=== PATIENT | female | born 1955 | race Caucasian/White ===

== ENCOUNTER 2018-10-08 15:38 | Outpatient (REF) | payer BC, SELFPAY ==
[2018-10-08 22:24] LABS: TSH 1.36 uIU/mL (0.358-3.74)
== END 2018-10-08 15:58 ==
LOC: NCHCN 15:38
PROVIDERS: PCP Internal Medicine; Visit Provider Internal Medicine
DX: E03.9 Hypothyroidism, unspecified (principal)
CPT/HCPCS: 84443

== ENCOUNTER 2019-04-13 10:04 | Outpatient (REF) | payer BC, SELFPAY ==
[2019-04-13 21:39] LABS: Anion Gap 10.1 mmol/L (3-11); BUN 16 mg/dL (7-18); CO2 28.9 mmol/L (21.0-32.0); CREATININE 0.75 mg/dL (0.55-1.02); Calcium 9.1 mg/dL (8.5-10.1); Calculated LDL 127 mg/dL; Chloride 107 mmol/L (98-107); Cholesterol 201 mg/dL (50-200); Glucose 88 mg/dL (70-100); HDL Cholesterol 56 mg/dL (40-60); Potassium 4.1 mmol/L (3.5-5.1); Sodium 146 mmol/L (136-145); Triglyceride 92 mg/dL (30-150)
== END 2019-04-13 10:24 ==
LOC: NCHCN 10:04
PROVIDERS: PCP Internal Medicine; Visit Provider Internal Medicine
DX: H18.51 Endothelial corneal dystrophy (principal); E66.9 Obesity, unspecified; Z13.1 Encounter for screening for diabetes mellitus
CPT/HCPCS: 80048; 80061; 83721

== ENCOUNTER 2019-09-08 01:13 | Outpatient (CLI) | payer MEDICARE, BC, SELFPAY ==
--- NOTE | 2019-09-08 10:25 | DI.MRI_ITS ---
EXAM: MR BRAIN WO CLINICAL HISTORY: MS stable; [place] [facility] [place] MULTIPLE SCLER[place]. TECHNIQUE: Multiplanar multisequence MRI was performed. COMPARISON: BRAIN W/WITHOUT CONTRAST from 11/13/2016 BRAIN W/WITHOUT CONTRAST from 11/13/2016 BRAIN W/WITHOUT CONTRAST from 11/13/2016 FINDINGS: There are again noted to be multiple small high signal foci in the periventricular white matter. The size and number of the lesions appears unchanged. No new abnormalities are seen. There is no evide nce of hemorrhage or mass. The vascular flow voids appear intact. The no areas of restricted diffus ion. There is now near complete opacification of the right maxillary sinus. The orbits and pituita ry are unremarkable. IMPRESSION: Stable white matter foci, consistent with the patient's history of multiple sclerosis. Right maxilla ry sinus disease is now present.
== END 2019-09-08 01:33 ==
PROVIDERS: PCP Internal Medicine; Visit Provider Psychiatry & Neurology Neurology
DX: G35 Multiple sclerosis (principal); J32.0 Chronic maxillary sinusitis
CPT/HCPCS: 70551

== ENCOUNTER → 2019-10-07 09:43 | Outpatient (BNVA) | payer MEDICARE, BC, SELFPAY | PROVIDERS: PCP Internal Medicine; Referring Provider Internal Medicine; Visit Provider Psychiatry & Neurology Neurology | DX: R41.3 Other amnesia (principal); G35 Multiple sclerosis | CPT/HCPCS: 99213 ==

== ENCOUNTER 2019-10-16 12:13 | Outpatient (REF) | payer MEDICARE, BC, SELFPAY ==
--- NOTE | 2019-10-16 11:15 | PAPFT_PTH ---
PATIENT: Vanessa Ortiz LOC: [facility] U#:[id number] AGE/SX: 64/F ROOM: RE10/16/[address]: NEAL Ahmadi : 1955 BED: DIS: 10/16/2019 SPEC #: [id number] RECD: 10/16/19 12:57 STATUS: CESILIA REPriti #: [id number] RACHEL: 10/16/19 11:[address]: Norma Roe DEPT: [facility] Cytology RECD BY: Kellie Dobbins ENTERED: 10/16/19 12:57 SP TYPE: PAPFT OTHR DR: Radha Ann Tissues: 1 - CX/ENDOCX FOR PAP SMEARS Procedures: PAP THIN PREP/UVM Screening HPV DNA PROBE Comments: [id number]
== END 2019-10-16 12:33 ==
LOC: LBN 12:13
PROVIDERS: PCP Internal Medicine; Visit Provider Nurse Practitioner Family
DX: Z12.4 Encounter for screening for malignant neoplasm of cervix (principal); Z11.51 Encounter for screening for human papillomavirus (HPV)
CPT/HCPCS: 88142; 87624

== ENCOUNTER 2019-10-26 13:59 | Outpatient (REF) | payer MEDICARE, BC, SELFPAY ==
[2019-10-26 21:59] LABS: TSH (W/Ref FT4) 2.23 uIU/mL (0.36-3.74)
== END 2019-10-26 14:19 ==
LOC: NCHCN 13:59
PROVIDERS: PCP Internal Medicine; Visit Provider Internal Medicine
DX: E03.9 Hypothyroidism, unspecified (principal)
CPT/HCPCS: 84443

== ENCOUNTER 2019-11-16 02:02 | Outpatient (CLI) | payer MEDICARE, BC, SELFPAY ==
--- NOTE | 2019-11-16 | DI.DEXA_ITS ---
EXAM: XR DEXA BONE DENSITY W/WO PEGGY INDICATION: SCREENING FOR OSTEOPOROSIS IN POSTMENOPAUSAL WOMAN,Z78.0. COMPARISON: No exams were available for comparison TECHNIQUE: 2D digital imaging was performed. FINDINGS: The lateral view of the spine shows no compression deformities. The left hip shows a total T-score of 0.1 and a Z-score of 1.3. This is within normal limits. Evaluation of the lumbar spine shows a total T-score of 0 and a Z-score of 1.8. This is also within normal limits. There is no evidence of osteoporosis. IMPRESSION: No evidence of osteoporosis.
== END 2019-11-16 02:22 ==
PROVIDERS: PCP Internal Medicine; Visit Provider Internal Medicine
DX: Z13.820 Encounter for screening for osteoporosis (principal); Z78.0 Asymptomatic menopausal state
CPT/HCPCS: 77080

== ENCOUNTER 2019-11-16 02:04 | Outpatient (CLI) | payer MEDICARE, BC, SELFPAY ==
--- NOTE | 2019-11-16 12:22 | DI.MAMMO_ITS ---
EXAM: MG MAMMO SCREENING CLINICAL HISTORY: screening. TECHNIQUE: Bilateral full field digital CC and MLO mammographic images were obtained with 3D tomosyn thesis and utilizing computer aided detection (CAD). COMPARISON: Available for comparison. FINDINGS: Masses/Architectural Distortion: None seen. Microcalcifications: No suspicious pleomorphic-type are seen. Skin Thickening/Nipple Retraction: None. IMPRESSION: 1. No significant interval change with no specific features of malignancy noted. 2. Unless there is more urgent need, screening mammography is recommended, as per [employer] guidelines. ACR BI-RAD Category- 1 Negative Breast Density - Category B - Scattered areas of fibroglandular density A negative radiographic report should not delay biopsy if a dominant or clinically suspicious mass is present. Up to ten percent of cancers are not identified on mammography. A negative report may reinforce clinical impression. Adenosis and dense breasts may obscure an underlying neoplasm. False positive reports average 6 to 10%. Patient will receive a letter notifying them of these results.
== END 2019-11-16 02:24 ==
PROVIDERS: PCP Internal Medicine; Visit Provider Nurse Practitioner Family
DX: Z12.31 Encounter for screening mammogram for malignant neoplasm of breast (principal); Z13.820 Encounter for screening for osteoporosis; Z78.0 Asymptomatic menopausal state
CPT/HCPCS: 77063; 77067; 77080

== ENCOUNTER → 2020-03-25 11:21 | Outpatient (BNVA) | payer MEDICARE, BC, SELFPAY | PROVIDERS: PCP Internal Medicine; Referring Provider Internal Medicine; Visit Provider Surgery | DX: Z12.11 Encounter for screening for malignant neoplasm of colon (principal); Z12.12 Encounter for screening for malignant neoplasm of rectum; Z86.010 Personal history of colon polyps ==

== ENCOUNTER 2020-04-13 06:15 | Day surgery (SDC) | payer MEDICARE, BC, SELFPAY ==
[2020-04-13 06:31] VITALS: BP 113/41; PULSE 58; RESP 16; TEMP 36.2; O2SAT 98
[2020-04-13] MEDS: Lactated Ringers 1,000 ML 80 ML IV (06:50)
--- NOTE | 2020-04-13 06:51 | W.COLOREPORT ---
Date of service: 04/13/20 Time of Service: 08:14 Colonoscopy Report Date of procedure: 04/13/20 Pre-op diagnosis general: Colon Cancer Screening Post-op diagnosis procedure note: same Procedure: Colonoscopy Surgeon: Maisha Santamaria Anesthesia proc note operative: other (General / ASA 2/Spencer Banuelos, ÓSCAR ) Pathology: none sent Complications: None Disposition: same day Indications: Mrs. Ortiz is a pleasant 64-year-old female with a past medical history of colon polyps in 2006 and 2009. She had another colonoscopy in 2014 which was normal. She is here today for another screening colonoscopy. She has no family history of colon cancer. Past medical history is only significant for hypothyroidism. She denies any melena, hematochezia, unintentional weight loss, abdominal pain or changes in bowel habits. Prep: Miralax/Dulcolax Procedure Start Time: 07:31 Procedure End Time: 08:00 Retraction Time: 11 minutes Findings: Tortuous colon. No polyps or diverticula Procedure Description: After informed consent was obtained the patient was taken to the procedure room and placed in a left decubitous position. Monitors were applied and a time out was done. The patients name, date of , procedure, allergies to medications and metal in their body was reviewed. The patient was then sedated. Once sedated and comfortable a rectal exam was done. External exam was normal. Internal exam revealed a normal sphincter tone and no palpable masses. The scope was then introduced and retro-flexed. No internal hemorrhoids, masses or polyps were identified on retro-flexion. The scope was then advanced to the cecum with difficulty. Her colon was very tortuous with tight corners. The ileocecal valve and appendiceal orifice were identified. The prep was adequate. The scope was then slowly retracted over 11 minutes back into the rectum. There were no polyps and no diverticula noted. The scope was removed and the patient was woken up and taken back to Same day surgery in stable condition. The patient tolerated the procedure well and there were no immediate complications. Follow up: The patient should follow up in 5 years unless they develop changes in bowel habits or other new gastrointestinal complaints.
--- NOTE | 2020-04-13 06:52 | W.PM.DSUDISC ---
Discharge Plan Disposition Patient Disposition: HOME Condition: Good Discharge Details Reason For Visit: Colon Cancer Screening Attending Provider: Maisha Santamaria Primary Care Provider: Radha Ann Home Meds and New Rx's Prescriptions: Continued cholecalciferol (vitamin D3) 1,000 unit capsule 1,000 unit PO DAILY RF: 0 levothyroxine [Synthroid] 50 mcg tablet 50 mcg PO DAILY RF: 0 Discontinued bisacodyl [Dulcolax (bisacodyl)] 5 mg tablet,delayed release (DR/EC) 5 mg PO ONCE Qty: 4 RF: 0 polyethylene glycol 3350 17 gram powder in packet 255 g PO DAILY Qty: 15 RF: 0 Discharge Instructions Additional Instructions: Findings: Normal Follow up: 5 years for your next colonoscopy Please call if you develop: fevers >101.5 Nausea or Vomiting Abdominal pain that is not transient DAY SURGERY UNIT POST ENDOSCOPY INSTRUCTIONS 1. Because there will be medication in your system for the next 24 hours, you may feel a little sleepy. Your coordination will be affected. Therefore: a. Do not drive or operate dangerous equipment for 24 hours. b. Do not drink alcohol beverages for 24 hours (not even beer). c. Plan to go home and rest for the day. 2. Generally there are no restrictions on your activity after a day or so has gone by, but you may feel a bit fatigued for a few days. 3 After you arrive home you may have a light meal and return to a normal diet as you can tolerate it without feeling sick to your stomach. 4. After surgery, you may feel pain or discomfort. This should be only transient, but if it persists please contact your doctor. 5. If there are any questions regarding the findings of your procedure, please feel free to contact your doctor. 6. If you are unable to contact your doctor with a problem, contact the hospital at [phone]. 7. Continue all your regular medications unless directed otherwise. I understand the above instructions and have no questions. Signature of Patient or Responsible Adult Escort Date/Time Name of Responsible Adult Escort Signature of Nurse Date/Time Activity:: Activity as Tolerated Diet:: As Tolerated Discharge Orders Discharge Orders: Discharge Order (Routine); Ordered 04/13/20 Ordered By: Maisha Santamaria
[2020-04-13 08:29] VITALS: BP 104/55; PULSE 55; RESP 20; TEMP 36.1; O2SAT 98
== END 2020-04-13 09:00 | disposition home or self-care (01) ==
PROVIDERS: PCP Internal Medicine; Visit Provider Surgery
PROC: 0DJD8ZZ Inspection of Lower Intestinal Tract, Via Natural or Artificial Opening Endoscopic (ICD-10-PCS; CPT 45378; principal; 2020-04-13 07:30)
DX: Z12.11 Encounter for screening for malignant neoplasm of colon (principal); Z86.010 Personal history of colon polyps; E03.9 Hypothyroidism, unspecified
CPT/HCPCS: G0105; J2001

== ENCOUNTER 2020-09-21 01:14 | Outpatient (CLI) | payer MEDICARE, BC, SELFPAY ==
--- NOTE | 2020-09-21 07:30 | DI.MRI_ITS ---
EXAM: MR BRAIN WO CLINICAL HISTORY: clinically stable off meds, multiple sclerosis,g35 TECHNIQUE: Multiplanar multisequence MRI of the brain was performed. COMPARISON: MR MR BRAIN WO from 09/08/2019 MR MR BRAIN WO from 09/08/2019 FINDINGS: The examination is limited due to patient motion artifact. VENTRICLES AND EXTRA AXIAL SPACES: Normal in size and morphology for the patient's age. MIDLINE SHIFT: None. CEREBRAL PARENCHYMA: No focus of restricted diffusion to suggest acute infarct. No space-occupying le contreras identified. There are stable hyperintense white matter lesions. No new white matter lesions are identified. HEMORRHAGE: None. BRAINSTEM/CEREBELLUM: Normal. CALVARIUM: Normal. VISUALIZED PARANASAL SINUSES/MASTOIDS:Mucosal thickening is seen in the maxillary sinuses bilaterally . [place]: Normal flow void. PITUITARY GLAND: Unremarkable. OTHER FINDINGS: None. IMPRESSION: Stable white matter lesions, consistent with the patient's history of multiple sclerosis. DATA REPOSITORY:
== END 2020-09-21 01:34 ==
PROVIDERS: PCP Internal Medicine; Visit Provider Psychiatry & Neurology Neurology
DX: G35 Multiple sclerosis (principal)
CPT/HCPCS: 70551

== ENCOUNTER → 2020-10-05 08:30 | Outpatient (BNVA) | payer MEDICARE, BC, SELFPAY | PROVIDERS: PCP Internal Medicine; Referring Provider Internal Medicine; Visit Provider Psychiatry & Neurology Neurology | DX: G35 Multiple sclerosis (principal); R41.3 Other amnesia | CPT/HCPCS: 99212; 99442 ==

== ENCOUNTER 2020-11-07 09:32 | Outpatient (REF) | payer MEDICARE, BC, SELFPAY ==
[2020-11-07 14:55] LABS: ALT 33 U/L (14-59); AST 19 U/L (15-37); Albumin 3.9 g/dL (3.4-5.0); Alkaline Phosphatase 77 U/L (46-116); Anion Gap 8.4 mmol/L (3-11); BUN 14 mg/dL (7-18); Bilirubin, Total 0.7 mg/dL (0.2-1.0); CO2 27.6 mmol/L (21.0-32.0); CREATININE 0.7 mg/dL (0.55-1.02); Calculated LDL 123 mg/dL (<100); Chloride 106 mmol/L (98-107); Cholesterol 206 mg/dL (<200); Glucose 96 mg/dL (74-106); HDL Cholesterol 65 mg/dL (40-60); Sodium 142 mmol/L (136-145); TSH 1.36 uIU/mL (0.36-3.74); Total Protein 6.6 g/dL (6.4-8.2); Triglyceride 91 mg/dL (<150)
== END 2020-11-07 09:33 | disposition home or self-care (01) ==
LOC: NCHCN 09:32
PROVIDERS: PCP Internal Medicine; Visit Provider Internal Medicine
DX: K76.0 Fatty (change of) liver, not elsewhere classified (principal); Z13.220 Encounter for screening for lipoid disorders
CPT/HCPCS: 80053; 80061; 84443

== ENCOUNTER 2020-11-21 02:06 | Outpatient (CLI) | payer MEDICARE, BC, SELFPAY ==
--- NOTE | 2020-11-21 06:30 | DI.MAMMO_ITS ---
EXAM: MG MAMMO SCREENING CLINICAL HISTORY: screening,z12.39. TECHNIQUE: Bilateral full field digital CC and MLO mammographic images were obtained with 3D tomosyn thesis and utilizing computer aided detection (CAD). COMPARISON: Prior mammograms dating back to 2015, the most recent being October 2019. FINDINGS: There are no CAD designations. There are no spiculated masses nor malignant appearing microcalcification groups. There is no signif icant architectural distortion nor skin thickening-retraction. IMPRESSION: No radiographic evidence of malignancy. BI-RADS Category 1 - Negative Breast Density - Category B - Scattered areas of fibroglandular density Breast density Category C or D implies that the patient has dense breast tissue. Dense breast tissue can make it harder to find cancer on a mammogram. Dense breast tissue is also associated with an incr eased risk of breast cancer. This information about the result of the mammogram report was provided to the patient to raise their awareness. Use this report when you speak with the patient about their risks for breast cancer, which includes their family history. At that time, you may recommend additional screening tests (Ultrasoun d or MRI) as these tests may add significant information. A negative radiographic report should not delay biopsy if a dominant or clinically suspicious mass is present. Up to ten percent of cancers are not identified on mammography. A negative report may reinforce clinical impression. Adenosis and dense breasts may obscure an underlying neoplasm. False positive reports average 6 to 10%. Patient will receive a letter notifying them of these results.
== END 2020-11-21 02:07 ==
LOC: DI 02:06
PROVIDERS: PCP Internal Medicine; Visit Provider Nurse Practitioner Family
DX: Z12.31 Encounter for screening mammogram for malignant neoplasm of breast (principal)
CPT/HCPCS: 77063; 77067

== ENCOUNTER → 2021-10-04 10:43 | Outpatient (BNVA) | payer MEDICARE, BC, SELFPAY | PROVIDERS: PCP Internal Medicine; Referring Provider Internal Medicine; Visit Provider Psychiatry & Neurology Neurology | DX: G35 Multiple sclerosis (principal); R41.3 Other amnesia; M48.061 Spinal stenosis, lumbar region without neurogenic claudication | CPT/HCPCS: 99214 ==

== ENCOUNTER 2021-10-09 04:38 | Outpatient (CLI) | payer MEDICARE, BC, SELFPAY ==
[2021-10-09 13:38] LABS: TSH (W/Ref FT4) 1.74 uIU/mL (0.36-3.74); Vitamin B12 295 pg/mL (193-986)
== END 2021-10-09 04:39 | disposition home or self-care (01) ==
LOC: LBO 04:38
PROVIDERS: PCP Internal Medicine; Visit Provider Psychiatry & Neurology Neurology
DX: R41.3 Other amnesia (principal); G62.89 Other specified polyneuropathies
CPT/HCPCS: 36415; 82607; 84443

== ENCOUNTER 2021-11-27 15:16 | Outpatient (REF) | payer MEDICARE, BC, SELFPAY ==
[2021-11-27 17:15] LABS: Vitamin D 25 Total 48.6 ng/mL (30-100)
== END 2021-11-27 15:17 | disposition home or self-care (01) ==
LOC: NCHCN 15:16
PROVIDERS: PCP Internal Medicine; Visit Provider Internal Medicine
DX: E55.9 Vitamin D deficiency, unspecified (principal); E03.9 Hypothyroidism, unspecified
CPT/HCPCS: 82306

== ENCOUNTER 2021-12-06 01:25 | Outpatient (CLI) | payer MEDICARE, BC, SELFPAY ==
--- NOTE | 2021-12-06 | DI.MAMMO_ITS ---
Exam(s) MAMMO SCREENING EXAM: MAMMO SCREENING CLINICAL HISTORY: SCREENING, Z12.39 TECHNIQUE: Mammograms were interpreted according to the usual protocol including computer analysis w [employer] system, tomosynthesis and C-view imaging. COMPARISON: FINDINGS: Breasts are of moderate density with fairly symmetrical distribution of fibroglandular tissue. No do minant mass or clumped microcalcification is identified in either breast. The current examination is compared with previous examinations including of October 2020 and there has been no gross interval change in appearance in comparison with the prior studies. IMPRESSION: No specific evidence of malignancy at this time. Routine screening examinations are suggested at yea rly intervals in this age group according to the ACS ACR guidelines. BI-RADS Category 1 - Negative Breast Density - Category B - Scattered areas of fibroglandular density
== END 2021-12-06 01:45 ==
PROVIDERS: PCP Internal Medicine; Visit Provider Internal Medicine
DX: Z12.31 Encounter for screening mammogram for malignant neoplasm of breast (principal)
CPT/HCPCS: 77063; 77067

== ENCOUNTER → 2022-04-09 09:02 | Outpatient (BNVA) | payer MEDICARE, BC, SELFPAY | PROVIDERS: PCP Internal Medicine; Referring Provider Internal Medicine; Visit Provider Psychiatry & Neurology Neurology | DX: G35 Multiple sclerosis (principal); R41.3 Other amnesia | CPT/HCPCS: 99214 ==

== ENCOUNTER 2022-06-11 18:16 | Outpatient (REF) | payer MEDICARE, BC, SELFPAY ==
[2022-06-11 21:51] LABS: Abs Immature Grans 0.02 10^3/uL (0.0-0.06); Absolute Basophil Count 0.05 10^3/uL (0.0-0.2); Absolute Eosinophil Count 0.15 10^3/uL (0.0-0.7); Absolute Monocyte Count 0.42 10^3/uL (0.1-0.8); Absolute Neutrophil Count 2.82 10^3/uL (1.2-6.7); Basophils % 0.9; Eosinophils % 2.6; HCT 42.5 % (36.0-46.0); HGB 13.9 g/dL (11.2-15.7); Immature Grans % 0.3; Lymphocytes % 39.9; MCH 28.5 pg (27.0-33.0); MCHC 32.7 % (32.0-36.0); MCV 87 fL (80-95); MPV 10.5 fL (8.0-11.0); Monocytes % 7.3; Platelet Count 236 10^3/uL (130-400); RBC 4.88 10^6/uL (3.93-5.22); RDW 12.6 % (11.7-14.6); RDW-SD 40.2 fL; WBC 5.76 10^3/uL (4.4-10.8)
[2022-06-11 22:03] LABS: Hemoglobin A1C 5.6 % (<5.7)
[2022-06-11 22:13] LABS: ALT 31 U/L (14-59); AST 32 U/L (15-37); Albumin 3.7 g/dL (3.4-5.0); Alkaline Phosphatase 68 U/L (46-116); Anion Gap 5.7 mmol/L (3-11); BUN 14 mg/dL (7-18); Bilirubin, Total 0.5 mg/dL (0.2-1.0); CO2 30.3 mmol/L (21.0-32.0); CREATININE 0.7 mg/dL (0.55-1.02); Calcium 9.3 mg/dL (8.5-10.1); Chloride 106 mmol/L (98-107); Estimated GFR 94.73 (mL/min/1.73m2); Glucose 89 mg/dL (74-106); Potassium 4.3 mmol/L (3.5-5.1); Sodium 142 mmol/L (136-145); TSH 1.24 uIU/mL (0.36-3.74); Total Protein 6.9 g/dL (6.4-8.2)
== END 2022-06-11 18:17 | disposition home or self-care (01) ==
LOC: NCHCN 18:16
PROVIDERS: PCP Internal Medicine; Visit Provider Internal Medicine
DX: R73.03 Prediabetes (principal); R53.83 Other fatigue
CPT/HCPCS: 80053; 83036; 84443; 85025

== ENCOUNTER → 2022-10-08 13:02 | Outpatient (BNVA) | payer MEDICARE, BC, SELFPAY | PROVIDERS: PCP Internal Medicine; Referring Provider Internal Medicine; Visit Provider Psychiatry & Neurology Neurology | DX: R51.9 Headache, unspecified (principal); G35 Multiple sclerosis; R41.3 Other amnesia | CPT/HCPCS: 99214 ==

== ENCOUNTER 2022-10-29 14:24 | Outpatient (REF) | payer MEDICARE, BC, SELFPAY ==
--- NOTE | 2022-10-29 13:40 | PAPFT_PTH ---
PATIENT: Vanessa Ortiz LOC: [facility] U#:[id number] AGE/SX: 67/F ROOM: RE10/29/[address]: Krystina Campoverde NP : 1955 BED: DIS: 10/29/2022 SPEC #: [id number] RECD: 10/29/22 17:44 STATUS: CESILIA REPriti #: [id number] RACHEL: 10/29/22 13:[address]: Krystina Campoverde NP DEPT: [facility] Cytology RECD BY: Kellie Dobbins ENTERED: 10/29/22 17:44 SP TYPE: PAPFT OTHR DR: Radha Ann Tissues: 1 - CX/ENDOCX FOR PAP SMEARS Procedures: PAP THIN PREP/UVM Screening HPV DNA PROBE Comments: [id number]
== END 2022-10-29 14:25 | disposition home or self-care (01) ==
LOC: LBN 14:24
PROVIDERS: PCP Internal Medicine; Visit Provider Nurse Practitioner Women's Health
DX: Z11.51 Encounter for screening for human papillomavirus (HPV); Z87.42 Personal history of other diseases of the female genital tract; Z01.419 Encounter for gynecological examination (general) (routine) without abnormal findings
CPT/HCPCS: 88142; 87624

== ENCOUNTER 2022-12-10 02:04 | Outpatient (CLI) | payer MEDICARE, BC, SELFPAY ==
--- NOTE | 2022-12-10 09:15 | DI.MAMMO_ITS ---
Exam(s) MAMMO SCREENING EXAM: MAMMO SCREENING CLINICAL HISTORY: SCREENING, Z12.39, WELL ADULT/PREVENTATIVE CARE, Z00.00 TECHNIQUE: Bilateral full field digital CC and MLO mammographic images were obtained with 3D tomosyn thesis and utilizing computer aided detection (CAD). COMPARISON: Available for comparison. FINDINGS: Masses/Architectural Distortion: None seen. Microcalcifications: No suspicious pleomorphic-type are seen. Skin Thickening/Nipple Retraction: None. IMPRESSION: 1. No significant interval change with no specific features of malignancy noted. 2. Unless there is more urgent need, screening mammography is recommended, as per [employer] guidelines. BI-RADS Category 1 - Negative Breast Density - Category B - Scattered areas of fibroglandular density Breast density category C or D implies that the patient has dense breast tissue. Dense breast tissue is very common and is not abnormal but dense breast tissue can make it harder to find cancer on a ma mmogram. Also, dense breast tissue may increase their breast cancer risk. This information about the result of the mammogram report was provided to the patient to raise their awareness. Use this report when you speak with the patient about their risks for breast cancer, which includes their family hist ory. At that time, you may recommend for more screening tests (Ultrasound or MRI) as they might be us eful based on their risk. A negative radiographic report should not delay biopsy if a dominant or clinically suspicious mass is present. Up to ten percent of cancers are not identified on mammography. A negative report may reinforce clinical impression. Adenosis and dense breasts may obscure an underlying neoplasm. False positive reports average 6 to 10%. Patient will receive a letter notifying them of these results.
== END 2022-12-10 02:24 ==
LOC: DI 02:05
PROVIDERS: PCP Internal Medicine; Visit Provider Internal Medicine
DX: Z12.31 Encounter for screening mammogram for malignant neoplasm of breast (principal)
CPT/HCPCS: 77063; 77067

== ENCOUNTER 2023-01-31 17:17 | Outpatient (CLI) | payer MEDICARE, BC, SELFPAY ==
--- NOTE | 2023-01-31 16:51 | DI.RAD_ITS ---
Exam(s) XR CHEST 2V PA LATERAL EXAM: XR CHEST 2V PA LATERAL CLINICAL HISTORY: COUGH R05.8 X 6 WEEKS ? PNEUMONIA TECHNIQUE: 2D digital imaging was performed of the chest. Two images were obtained. PA and lateral views were obtained. COMPARISON: No priors for comparison. FINDINGS: MEDIASTINUM: Normal. HEART: Normal. PULMONARY VASCULATURE: Normal. LUNGS: Linear scarring or atelectasis is seen in the left mid lung. No focal consolidating infiltrat es. PLEURAL SPACE: No pleural effusion or pneumothorax. BONE:Within normal limits for the patient's age. OTHER FINDINGS:Normal. IMPRESSION: No acute pulmonary findings. DATA REPOSITORY: RADIATION DOSE DELIVERED:
--- NOTE | 2023-01-31 17:00 | DI.VRAD_ITS ---
PROCEDURE INFORMATION: Exam: XR Chest Exam date and time: 01/31/2023 4:43 PM Age: 67 years old Clinical indication: Other: ? Pneumonia TECHNIQUE: Imaging protocol: Radiologic exam of the chest. Views: 2 views. COMPARISON: No relevant prior studies available. FINDINGS: Lungs: Minor linear opacification in the left mid lung field appears to represent scar or minor linear atelectasis. No consolidation. No edema. Pleural spaces: Unremarkable. No pleural effusion. No pneumothorax. Heart/Mediastinum: Unremarkable. No cardiomegaly. Bones/joints: Unremarkable. IMPRESSION: No acute findings. Dictated and Authenticated by: Remy Mcleod MD. Ordering:THERESA Chand MD
== END 2023-01-31 17:37 ==
LOC: DI 17:18
PROVIDERS: PCP Internal Medicine; Visit Provider Physician Assistant Medical
DX: R05.8 Other specified cough (principal)
CPT/HCPCS: 71046

== ENCOUNTER → 2023-04-08 08:11 | Outpatient (BNVA) | payer MEDICARE, BC, SELFPAY | PROVIDERS: PCP Internal Medicine; Referring Provider Internal Medicine; Visit Provider Psychiatry & Neurology Neurology | DX: G35 Multiple sclerosis (principal); R25.2 Cramp and spasm; R41.3 Other amnesia | CPT/HCPCS: 99214 ==

== ENCOUNTER → 2023-10-07 10:49 | Outpatient (BNVA) | payer MEDICARE, BC, SELFPAY | PROVIDERS: PCP Internal Medicine; Referring Provider Internal Medicine; Visit Provider Psychiatry & Neurology Neurology | DX: G35 Multiple sclerosis (principal) | CPT/HCPCS: 99213 ==

== ENCOUNTER 2023-12-04 08:52 | Outpatient (REF) | payer MEDICARE, BC, SELFPAY ==
[2023-12-04 15:33] LABS: Hemoglobin A1C 5.6 % (<5.7)
[2023-12-04 16:02] LABS: ALT 26 U/L (14-59); AST 15 U/L (15-37); Albumin 3.9 g/dL (3.4-5.0); Alkaline Phosphatase 82 U/L (46-116); Anion Gap 9.4 mmol/L (3-11); BUN 11 mg/dL (7-18); Bilirubin, Total 0.5 mg/dL (0.2-1.0); CO2 29.6 mmol/L (21.0-32.0); CREATININE 0.9 mg/dL (0.55-1.02); Calcium 9.7 mg/dL (8.5-10.1); Calculated LDL 149 mg/dL (<100); Chloride 105 mmol/L (98-107); Cholesterol 239 mg/dL (<200); Glucose 87 mg/dL (74-106); HDL Cholesterol 61 mg/dL (40-60); Potassium 4.4 mmol/L (3.5-5.1); Sodium 144 mmol/L (136-145); TSH 2.31 uIU/Ml (0.36-3.74); Total Protein 7.2 g/dL (6.4-8.2); Triglyceride 146 mg/dL (<150); Vitamin B12 612 pg/mL (193-986)
== END 2023-12-04 08:53 | disposition home or self-care (01) ==
LOC: NCHCN 08:52
PROVIDERS: PCP Internal Medicine; Referring Provider Internal Medicine; Visit Provider Internal Medicine
DX: E03.9 Hypothyroidism, unspecified (principal); R73.03 Prediabetes; R41.3 Other amnesia; R79.89 Other specified abnormal findings of blood chemistry
CPT/HCPCS: 80053; 80061; 82607; 83036; 84443

== ENCOUNTER → 2023-12-16 04:26 | Outpatient (CLI) | payer MEDICARE, BC, SELFPAY ==
--- NOTE | 2023-12-16 | DI.MAMMO_ITS ---
Exam(s) MAMMO SCREENING EXAM: MAMMO SCREENING CLINICAL HISTORY: SCREENING, Z12.31. TECHNIQUE: Bilateral full field digital CC and MLO mammographic images were obtained with 3D tomosyn thesis and utilizing computer aided detection (CAD). COMPARISON: Prior mammograms were reviewed. FINDINGS: There has been no significant change in the appearance and distribution of the fibroglandular tissue. There are no CAD designations. There are no new spiculated masses nor malignant appearing microcalcification groups. There is no significant architectural distortion nor skin thickening-retraction. IMPRESSION: No radiographic evidence of malignancy. BI-RADS Category 1 - Negative Breast Density - Category A - Almost entirely fatty Breast density Category C or D implies that the patient has dense breast tissue. Dense breast tissue can make it harder to find cancer on a mammogram. Dense breast tissue is also associated with an incr eased risk of breast cancer. This information about the result of the mammogram report was provided to the patient to raise their awareness. Use this report when you speak with the patient about their risks for breast cancer, which includes their family history. At that time, you may recommend additional screening tests (Ultrasoun d or MRI) as these tests may add significant information. A negative radiographic report should not delay biopsy if a dominant or clinically suspicious mass is present. Up to ten percent of cancers are not identified on mammography. A negative report may reinforce clinical impression. Adenosis and dense breasts may obscure an underlying neoplasm. False positive reports average 6 to 10%. Patient will receive a letter notifying them of these results.
== END ==
PROVIDERS: PCP Internal Medicine; Visit Provider Internal Medicine
DX: Z12.31 Encounter for screening mammogram for malignant neoplasm of breast (principal)
CPT/HCPCS: 77063; 77067

== ENCOUNTER → 2024-06-09 11:00 | Outpatient (BNVA) | payer MEDICARE, BC, SELFPAY | PROVIDERS: PCP Internal Medicine; Referring Provider Internal Medicine; Visit Provider Psychiatry & Neurology Neurology | DX: G35 Multiple sclerosis (principal); M79.651 Pain in right thigh; M79.652 Pain in left thigh; G43.109 Migraine with aura, not intractable, without status migrainosus | CPT/HCPCS: 99214 ==

== ENCOUNTER → 2024-10-05 10:02 | Outpatient (BNVA) | payer MEDICARE, BC, SELFPAY | PROVIDERS: PCP Internal Medicine; Referring Provider Internal Medicine; Visit Provider Psychiatry & Neurology Neurology | DX: G35 Multiple sclerosis (principal); M79.651 Pain in right thigh; M79.652 Pain in left thigh; G43.109 Migraine with aura, not intractable, without status migrainosus; R41.3 Other amnesia | CPT/HCPCS: 99213 ==

== ENCOUNTER → 2024-10-08 09:50 | Outpatient (BNVA) | payer MEDICARE, BC, SELFPAY | PROVIDERS: PCP Internal Medicine; Referring Provider Internal Medicine; Visit Provider Physical Therapy Assistant | DX: Z12.11 Encounter for screening for malignant neoplasm of colon (principal); G35 Multiple sclerosis ==

== ENCOUNTER 2024-12-04 14:28 | Outpatient (REF) | payer MEDICARE, BC, SELFPAY ==
[2024-12-04 14:54] LABS: Hemoglobin A1C 5.6 % (<5.7)
[2024-12-04 15:04] LABS: ALT 23 U/L (14-59); AST 18 U/L (15-37); Albumin 3.6 g/dL (3.4-5.0); Alkaline Phosphatase 85 U/L (46-116); Anion Gap 5.5 mmol/L (3-11); BUN 16 mg/dL (7-18); Bilirubin, Total 0.6 mg/dL (0.2-1.0); CO2 31.5 mmol/L (21.0-32.0); CREATININE 0.9 mg/dL (0.55-1.02); Calcium 9.6 mg/dL (8.5-10.1); Calculated LDL 119 mg/dL (<100); Chloride 107 mmol/L (98-107); Cholesterol 204 mg/dL (<200); Estimated GFR 68.77 (mL/min/1.73m2); Glucose 87 mg/dL (74-106); HDL Cholesterol 62 mg/dL (>or=50); Potassium 4.4 mmol/L (3.5-5.1); Sodium 144 mmol/L (136-145); TSH 2.37 uIU/mL (0.36-3.74); Total Protein 6.6 g/dL (6.4-8.2); Triglyceride 116 mg/dL (<150)
== END 2024-12-04 14:29 | disposition home or self-care (01) ==
LOC: NCHCN 14:28
PROVIDERS: PCP Internal Medicine; Visit Provider Internal Medicine
DX: K76.0 Fatty (change of) liver, not elsewhere classified (principal); R73.03 Prediabetes
CPT/HCPCS: 80053; 80061; 83036; 84443

== ENCOUNTER 2024-12-25 15:47 | Outpatient (REF) | payer MEDICARE, BC, SELFPAY ==
[2024-12-25 16:44] LABS: Bacteria Rare HPF (Negative); C & S Indicated? C&S Done As Ordered; Casts Negative LPF (Negative); Crystals Negative HPF (Negative); Epithelial Cells Rare HPF (Negative); Mucus Negative (Negative); Other Cells Negative (Negative); RBC Negative HPF (0-2)
== END 2024-12-25 15:48 | disposition home or self-care (01) ==
LOC: LBN 15:47
PROVIDERS: PCP Internal Medicine; Visit Provider Physician Assistant Medical
DX: R82.998 Other abnormal findings in urine (principal); R82.89 Other abnormal findings on cytological and histological examination of urine; B96.29 Other Escherichia coli [E. coli] as the cause of diseases classified elsewhere
CPT/HCPCS: 87077; 81015; 87086; 87186; 87480; 87510; 87660

== ENCOUNTER 2025-02-02 06:05 | Day surgery (SDC) | payer MEDICARE, BC, SELFPAY ==
[2025-02-02 06:28] VITALS: BP 128/71; PULSE 78; RESP 16; TEMP 36.7; O2SAT 96
[2025-02-02] MEDS: Lactated Ringers 1,000 ML 80 ML IV (06:48)
--- NOTE | 2025-02-02 07:17 | W.ANESPRE ---
General Info Date of Service Date Performed: 02/02/25 Height: 5 ft 4 in Weight: 90.718 kg Body Mass Index (BMI): 34.3 Surgical Procedure: Operation Date: 02/02/25 07:35 Proposed Procedure Side Surgeon velia Hsieh MD Meds Allergies and Home Medications Allergies Allergy/AdvReac Type Severity Reaction Status Date / Time No Known Allergies Allergy Verified 02/02/25 06:20 Home Medication ?Medication ?Instructions ?Recorded levothyroxine 50 mcg tablet 50 mcg PO DAILY 05/25/19 (Synthroid) cholecalciferol (vitamin D3) 25 2,000 unit PO DAILY 04/09/22 mcg (1,000 unit) capsule mecobalamin (vitamin B12) 1,000 1,000 mcg sublingual DAILY 04/09/22 mcg disintegrating tablet,sublingual vitamin B complex (B 1 tab PO DAILY 02/06/23 Complex-Vitamin B12 tablet) bisacodyl 5 mg tablet,delayed 5 mg PO ONCE #4 tabs 10/08/24 release (Dulcolax (bisacodyl)) polyethylene glycol 3350 17 17 g PO ONCE #238 grams 10/08/24 gram/dose oral powder albuterol sulfate 90 mcg/actuation 2 puff inhalation Q6H PRN 01/21/25 aerosol inhaler shortness of breath or wheezing #6.7 grams benzonatate 100 mg capsule 100 mg PO BID PRN 01/21/25 inhalational spacing device #10 ea 01/21/25 (Aerochamber MV spacer) omeprazole 20 mg capsule,delayed 20 mg PO DAILY 01/21/25 release Current Visit Medications: Current Medications Generic Name Dose Route Start Last Admin Trade Name Freq PRN Reason Stop Dose Admin Ringer's Solution 1,000 mls @ 80 mls/hr 02/02/25 06:00 02/02/25 06:48 IV 02/02/25 23:59 80 mls/hr INFUSION JINA Administration IV Miscellaneous Supplies 1 each 02/02/25 06:00 Iv Access IV 02/02/25 23:59 DIRECTED JINA Sodium Chloride 0 ml 02/02/25 06:00 Normal Saline Flush 10 Ml Syr IV 02/02/25 23:59 PRN PRN Sodium Chloride 0 ml 02/02/25 06:00 Normal Saline 10 Ml Vial IJ 02/02/25 23:59 DIRECTED PRN Sterile Water 0 ml 02/02/25 06:00 Water,Injection,Sterile 10 Ml Vial IJ 02/02/25 23:59 DIRECTED PRN PFSH Active Problems Active Problems: Problem Status Onset Code Persistent cough Acute R05.3 Ocular migraine Acute G43.109 Bilateral thigh pain Acute M79.651, M79.652 Nasal congestion Acute R09.81 Memory loss Acute R41.3 Hypothyroid Chronic E03.9 Multiple sclerosis Chronic G35 Medical History Medical History Hyperlipemia Obesity (BMI 30-39.9) Vitamin D deficiency Screening for breast cancer Spondylolisthesis DDD (degenerative disc disease), lumbar Unspecified inflammatory spondylopathy, lumbar region Lumbar radiculopathy Fatigue Prediabetes Pain in right shoulder Anxiety Cough Chronic sinusitis Obesity Fatty liver Colonic polyp Hypothyroid Lumbar spinal stenosis Fuchs' corneal dystrophy Surgical History Surgical History History of colonoscopy (~09/2009) 2006, 2009- polyps 2014- no polyps History of D&C S/P tubal ligation Tobacco Smoking/Tobacco Use Status: Never Passive smoking exposure: No Alcohol Alcohol Intake: never Substance Use Substance use: Never Substance use type: does not use Prental History History 3 Para 2 Hx # Term Pregnancies Multiple births Hx # Pregnancies Ectopic pregnancies AB induced Hx Number of Living Children AB spontaneous Vital Signs and Lab Results Vital Signs Most Recent Vital Signs in EMR: Most Recent Vital Signs Temp Pulse Resp BP Pulse Ox 36.7 C 78 16 128/71 96 02/02/25 06:28 02/02/25 06:28 02/02/25 06:28 02/02/25 06:28 02/02/25 06:28 Lab Results Blood Type / Crossmatch: No Data to Display Complete Blood Count: No Data to Display Complete Metabolic Panel: No Data to Display Liver Function Panel: No Data to Display Coagulation Panel: No Data to Display Cardiac Panel: No Data to Display Arterial Blood Gas: No Data to Display Venous Blood Gas: No Data to Display Pancreas Panel: No Data to Display Thyroid Panel: No Data to Display Infectious Disease: No Data to Display Blood Cultures: No Data to Display Toxicology Panel: No Data to Display Anesthesia Assessment and Plan Anesthesia History Personal History: No History of Anesthesia Complications Family History: No Family History of Anesthesia Complications Exercise Tolerance Exercise Tolerance: Metabolic Equivalents>4 Pertinent Negatives Pertinent Negatives: No Symptoms of GERD Cardiac & Pulmonary Exam Cardiac Exam: Normal S1/S2 Heart Sounds Pulmonary Exam: Clear Bilateral Breath Sounds Implantable Cardiac Device Does patient have a Pacemaker or an ICD?: No Airway Exam Known Difficult Airway: No Mallampati Class: 2 Mouth Opening: Normal (> 3cm) Thyromental Distance: Less than 3 cm Neck Range of Motion: Full ROM Neck Circumference: Normal Teeth Condition: Normal Dentition ASA Classification ASA Score: ASA 3 Emergency Case?: No NPO Status NPO Status: NPO Clears >2 hours, Solids >8 hours Anesthesia Plan Resuscitation Status: Full Code Anesthesia Technique: General Anesthesia Airway Planned: Natural Airway Monitors Used: Standard Monitors
[2025-02-02 07:19] VITALS: BMI 34.3
--- NOTE | 2025-02-02 07:36 | W.SURGCON ---
Date of service: 02/02/25 Time of Service: 07:36 Assessment and Plan Assessment and plan (1) Encounter for screening colonoscopy: Status: Acute Assessment and plan: 69-year-old woman due for surveillance colonoscopy. No increased risk Overall plan: Colonoscopy History of Present Illness Narrative: 69-year-old woman is here for a surveillance colonoscopy. She has no symptoms of concern. No family history of colon cancer. She thinks many times ago she might of had a polyp or 2 but does not recall that the last ones had polyps. No intra-abdominal surgical history PFSH All Active Problems (Updated 02/02/25 @ 07:37 by Saulo Hsieh MD) Encounter for screening colonoscopy (Acute) Persistent cough (Acute) Ocular migraine (Acute) Bilateral thigh pain (Acute) Nasal congestion (Acute) Memory loss (Acute) Hypothyroid (Chronic) Multiple sclerosis (Chronic) F/U Dr. Alexis took her off her meds, pt. reports that she is currently stabilized Medical History Hyperlipemia Obesity (BMI 30-39.9) Vitamin D deficiency Screening for breast cancer Spondylolisthesis DDD (degenerative disc disease), lumbar Unspecified inflammatory spondylopathy, lumbar region Lumbar radiculopathy Fatigue Prediabetes Pain in right shoulder Anxiety Cough Chronic sinusitis Obesity Fatty liver Colonic polyp Hypothyroid Lumbar spinal stenosis Fuchs' corneal dystrophy Surgical History History of colonoscopy (~09/2009) 2006, 2009- polyps 2015- no polyps History of D&C S/P tubal ligation Family History Mother Hypertension Father Stroke Hyperlipidemia Paternal Cousin Multiple sclerosis Paternal Cousin Multiple sclerosis Social History Smoking/Tobacco Use Status: Never Smoking risk assessment performed?: Yes Alcohol Intake: never Drug use: Never Substance use type: does not use Household members: spouse Housing: house Number of Children: 2 current occupation: Retired Hairdresser Do you feel safe at home: Yes Do you feel safe in your relationship?: Yes History History 3 Para 2 Hx # Term Pregnancies Multiple births Hx # Pregnancies Ectopic pregnancies AB induced Hx Number of Living Children AB spontaneous Exam Narrative Exam Narrative: Gen: Non-toxic, comfortable and interactive Neuro: Alert and oriented x3 Psych: Good mood and affect. Good insight and understanding into condition. Chest: Non-labored breathing, no wheezing, no visible shortness of breath. Heart: Regular Results Last Vital Signs Temp 98.1 F 02/02/25 06:28 Pulse 78 02/02/25 06:28 Resp 16 02/02/25 06:28 BP 128/71 02/02/25 06:28 Pulse Ox 96 02/02/25 06:28
--- NOTE | 2025-02-02 07:37 | W.COLOREPORT ---
Date of service: 02/02/25 Time of Service: 07:37 Colonoscopy Report Procedure Description: PROCEDURES PERFORMED: 1. Colonoscopy PREOPERATIVE DIAGNOSIS: Surveillance colonoscopy POSTOPERATIVE DIAGNOSIS: Normal terminal ileum, normal colon, normal rectum SURGEON: Brenden Hsieh MD INDICATION FOR PROCEDURE: the patient is a 69-year-old woman due for surveillance colonoscopy. Prior colonoscopies have been normal and perhaps she thinks a polyp was found a number of years ago. No family history of colon cancer. FINDINGS: The terminal ileum was normal. No polyps were seen anywhere in the colon. No inflammation. No obvious diverticular disease. In the rectum there was no obvious hemorrhoid disease. SURVEILLANCE interval/FOLLOW-UP: I think she can stretch out her next colonoscopy to 10 years SPECIMENS: None EBL: Minimal COMPLICATIONS: None QUALITY of prep: Excellent Procedure in detail: The patient gave written consent and was in agreement with the indications, the potential risks as well as the benefits of the procedure. They were taken to the endoscopy suite and laid in the left lateral decubitus position. A timeout was performed and anesthesia was administered which was tolerated well. I started the procedure. Digital rectal and visual examination was performed and grossly within normal limits. A well-lubricated flexible colonoscope was then introduced and passed without any notable difficulty all the way to the cecum identified by the ileocecal valve and the appendiceal orifice. The ileum was intubated and looked normal. The scope was then slowly withdrawn with the above-noted findings. The patient tolerated the procedure well and was taken to the PACU in hemodynamically stable condition.
--- NOTE | 2025-02-02 07:38 | W.PM.DSUDISC ---
Date of service: 02/02/25 Discharge Plan Disposition Patient Disposition: Home Condition: Good Discharge Details Attending Provider: Saulo Hsieh Primary Care Provider: Radha Ann Home Meds and New Rx's Prescriptions: No Action mecobalamin (vitamin B12) 1,000 mcg tablet,disintegrating 1,000 mcg sublingual DAILY Rx Instructions: place tablet under tongue and allow to dissolve for at least30 secs before swallowing bisacodyl [Dulcolax (bisacodyl)] 5 mg tablet,delayed release (DR/EC) 5 mg PO ONCE Qty: 4 0RF Rx Instructions: Take per colonoscopy instructions provided by ordering providers office polyethylene glycol 3350 17 gram/dose powder 17 g PO ONCE Qty: 238 0RF Rx Instructions: Take per colonoscopy instructions provided by ordering providers office omeprazole 20 mg capsule,delayed release(DR/EC) 20 mg PO DAILY benzonatate 100 mg capsule 100 mg PO BID PRN albuterol sulfate 90 mcg/actuation HFA aerosol inhaler 2 puff inhalation Q6H PRN (Reason: shortness of breath or wheezing) Qty: 6.7 1RF (DME) Aerochamber MV Spacer See Rx Instructions .Route Qty: 10 0RF Rx Instructions: As directed levothyroxine [Synthroid] 50 mcg tablet 50 mcg PO DAILY cholecalciferol (vitamin D3) 25 mcg (1,000 unit) capsule 2,000 unit PO DAILY vitamin B complex [B Complex-Vitamin B12] Tablet 1 tab PO DAILY Discharge Instructions Additional Instructions: FINDINGS: No polyps, certainly no cancer, no inflammatory conditions. Your colon and rectum appear very healthy. I think it is completely reasonable to do your next colonoscopy in 10 years. You do not need to repeat it in 5 unless you develop symptoms or bowel habit changes that are concerning. Stand Alone Forms: Anesthesia Discharge Inst., Colonoscopy Post Instructions, Zulma Mata (DSU) Activity:: Activity as Tolerated Diet:: As Tolerated Discharge Orders Discharge Orders: Discharge Order (Routine); Ordered 02/02/25 Ordered By: Saulo Hsieh DS: Diagnosis Discharge Diagnosis (1) Encounter for screening colonoscopy: Status: Acute
[2025-02-02 08:12] VITALS: BP 112/68; PULSE 54; RESP 17; TEMP 35.9; O2SAT 98
[2025-02-02 08:40] VITALS: BP 108/67; PULSE 62; RESP 18; TEMP 36.5; O2SAT 97
--- NOTE | 2025-02-02 10:15 | W.ANESPOSTOP ---
Postoperative Evaluation Date, Time and Location Date Performed: 02/02/25 Time Performed: 08:45 Patient Location: Day [facility] Unit Vital Signs Most Recent Imported Vital Signs: Most Recent Vital Signs Temp Pulse Resp BP Pulse Ox 36.5 C 62 18 108/67 97 02/02/25 08:40 02/02/25 08:40 02/02/25 08:40 02/02/25 08:40 02/02/25 08:40 Pain Score Most Recent Pain Score: Most Recent Pain Score Pain Level 0 02/02/25 08:40 Assessment Mental Status: Awake (Alert & Oriented to Patient Baseline) Airway and Respiratory Function: Patent airway with normal (patient baseline) respiratory exam Cardiovascular Function: Hemodynamically Stable Hydration Status: Adequately Hydrated Nausea & Vomiting: No Nausea or Vomiting Pain: Pt. Denies Any Pain Peripheral Nerve Block: Patient did not receive a nerve block
== END 2025-02-02 08:44 | disposition home or self-care (01) ==
PROVIDERS: PCP Internal Medicine; Visit Provider Student in an Organized Health Care Education/Training Program
PROC: 0DJD8ZZ Inspection of Lower Intestinal Tract, Via Natural or Artificial Opening Endoscopic (ICD-10-PCS; CPT 45378; principal; 2025-02-02 07:30)
DX: Z12.11 Encounter for screening for malignant neoplasm of colon (principal)
CPT/HCPCS: G0121; J2704

== ENCOUNTER 2025-02-04 00:37 | Outpatient (CLI) | payer MEDICARE, BC, SELFPAY ==
--- NOTE | 2025-02-04 13:07 | DI.CT_ITS ---
Exam(s) CT NECK CHEST WO EXAM: CT NECK CHEST WO CLINICAL HISTORY: persistent cough x 4 months,r05.3 TECHNIQUE: Imaging Protocol: Axial computed tomography images with coronal and sagittal reformatted images were created and reviewed. Computer aided detection (CAD) was utilized. CONTRAST MATERIAL: Noncontrast COMPARISON: CR,XR XR CHEST 2V PA LATERAL from 01/31/2023 FINDINGS: Neck: Parotids/submandibular/thyroid gland: Normal. Lymphadenopathy: There are scattered lymph nodes seen along the level one to level three all measuri ng less than 8 mm in short axis diameter which are physiologic in nature. Soft tissues: The floor the mouth is unremarkable. The epiglottis and vocal cords are within normal limits. Bones: No fracture. No lytic or blastic lesions. Degenerative changes in the spine. The sinuses and mastoid air cells are clear. Chest: Tracheobronchial tree: Patent where visualized. No evidence of bronchiectasis or bronchial wall thic [place]. Mediastinum and Jewell: No dominant adenopathy or fluid collection. Pulmonary parenchyma: No consolidation or dominant measurable mass. No ground-glass infiltrates. Mild atelectasis or scarring at the lung bases. Pleura: No effusion or pneumothorax. Heart/Aorta: Thoracic aorta non-dilated. The heart is not dilated. No coronary artery calcifications are seen. Pulmonary arteries: Not enlarged. Bones: No fracture. No lytic or blastic lesions. ABDOMEN: Visualize portions of the upper abdomen show a small nonobstructing stone in the mid left kidney. IMPRESSION: No significant findings in the neck or chest. RADIATION DOSE DELIVERED: Total DLP DATA REPOSITORY: All CT scans at this facility are submitted to the National Radiology Data Registry (NRDR) Dose Index Registry (DIR) with the [employer] (A[employer]). RADIATION OPTIMIZATION: All CT scans at this facility use at least one of these dose optimization te chniques: automated exposure control; mA and/or kV adjustment per patient size (includes targeted exa ms where dose is matched to clinical indication); or iterative reconstruction.
== END 2025-02-04 00:57 ==
LOC: DI 00:37
PROVIDERS: PCP Internal Medicine; Visit Provider Registered Nurse Maternal Newborn
DX: R05.3 Chronic cough (principal)
CPT/HCPCS: 71271; 70490

== ENCOUNTER 2025-03-01 03:01 | Outpatient (CLI) | payer MEDICARE, BC, SELFPAY ==
--- NOTE | 2025-03-01 | DI.MAMMO_ITS ---
Exam(s) MAMMO SCREENING EXAM: MAMMO SCREENING CLINICAL HISTORY: SCREENING, Z12.31 TECHNIQUE: Bilateral full field digital CC and MLO mammographic images were obtained with 3D tomosyn thesis and utilizing computer aided detection (CAD). COMPARISON: Available for comparison. FINDINGS: Masses/Architectural Distortion: No suspicious masses or areas of architectural distortion are presen t. Microcalcifications: No suspicious pleomorphic-type are seen. Skin Thickening/Nipple Retraction: None. IMPRESSION: 1. No significant interval change with no specific features of malignancy noted. 2. Unless there is more urgent need, screening mammography is recommended, as per [employer] guidelines. BI-RADS Category 1 - Negative Breast Density - Category A - The breast are almost entirely fatty. Breast density Category C or D implies that the patient has dense breast tissue. Dense breast tissue can make it harder to find cancer on a mammogram. Dense breast tissue is also associated with an incr eased risk of breast cancer. This information about the result of the mammogram report was provided to the patient to raise their awareness. Use this report when you speak with the patient about their risks for breast cancer, which includes their family history. At that time, you may recommend additional screening tests (Ultrasoun d or MRI) as these tests may add significant information. A negative radiographic report should not delay biopsy if a dominant or clinically suspicious mass is present. Up to ten percent of cancers are not identified on mammography. A negative report may reinforce clinical impression. Adenosis and dense breasts may obscure an underlying neoplasm. False positive reports average 6 to 10%. Patient will receive a letter notifying them of these results.
== END 2025-03-01 03:21 ==
LOC: DI 03:04
PROVIDERS: PCP Internal Medicine; Visit Provider Internal Medicine
DX: Z12.31 Encounter for screening mammogram for malignant neoplasm of breast (principal); R92.313 Mammographic fatty tissue density, bilateral breasts
CPT/HCPCS: 77063; 77067

== ENCOUNTER 2025-03-05 01:21 | Outpatient (CLI) | payer MEDICARE, BC, SELFPAY ==
[2025-03-05] MEDS: Inhaler, Assist Device 1 EACH MC (11:35)
[2025-03-05] MEDS: Levalbuterol HFA 15 GM INH 4 PUFF IH (11:35)
--- NOTE | 2025-03-21 14:24 | W.PFT ---
Date of service: 03/05/25 Time of Service: 10:04 Pulmonary Function Test Result Indications: Chronic cough Interpretation Spirometry: There is no airflow limitation. No bronchodilator response Lung Volumes: Normal lung volumes Diffusion Capacity: Normal diffusion Airway Pressure: Normal airways resistance Impression Normal pulmonary function testing Clinical Correlation therefore is recommended.
== END 2025-03-05 01:22 | disposition home or self-care (01) ==
LOC: RT 01:21
PROVIDERS: PCP Internal Medicine; Visit Provider Student in an Organized Health Care Education/Training Program
DX: R05.3 Chronic cough (principal)
CPT/HCPCS: 94060; 94726; 94729